=== PATIENT | female | born 2000 | race Caucasian/White ===

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

== ENCOUNTER 2020-08-04 05:24 | Inpatient (IN) | payer MEDICAID ==
[~2020-08-04] VITALS: Ht 157.5 cm; Wt 62.6 kg
[2020-08-04] MEDS ORDERED: ONDANSETRON HCL/PF 4 MG/2 ML VIAL ONE (05:36)
--- NOTE | 2020-08-04 05:53 | NUR ---
PATIENT CAME TO THE ER BED 4 C/O MID EPIGASTRIC PAIN SINCE LAST NIGHT. PATIENT STATES THAT SHE ALSO TOOK TYLENOL FOR THE PAIN WITH NO RELIEF. PATIENT IS AAOX4. NO SOB.BREATHING EVENLY AND UNLABORED ON ROOM AIR. CONNECTED TO THE MONITOR.
[2020-08-04] MEDS ORDERED: MORPHINE SULFATE INJ 2 MG/ML DISP.SYRIN IV ONE (06:00)
[2020-08-04] MEDS ORDERED: IV NS 0.9% 1,000 ML BAG IV ONE ×2 (06:00→08:30)
[2020-08-04] MEDS ORDERED: ONDANSETRON HCL/PF 4 MG/2 ML VIAL IVP ONE (06:00)
[2020-08-04 06:11] LABS: BILIRUBIN,URINE NEGATIVE (NEGATIVE); COLOR,URINE YELLOW (YELLOW); LEUKOCYTE ESTERASE ,URINE NEGATIVE (NEGATIVE); NITRITE, URINE NEGATIVE (NEGATIVE); PROTEIN,URINE NEGATIVE (NEGATIVE); UGLUCOSE NEGATIVE (NEGATIVE); UROBILINOGEN,URINE 0.2 EU/dL (0.2)
[2020-08-04 06:28] LABS: BASOPHILS % (AUTO) 0.6 % (0.0-2.0); EOSINOPHILS % (AUTO) 9.5 % (0.0-6.0); HEMATOCRIT 33 % (33-45); HEMOGLOBIN 10.5 g/dL (11.5-14.8); LYMPHOCYTES # (AUTO) 2.2 /CMM (0.8-4.8); LYMPHOCYTES % (AUTO) 31.9 % (20.0-44.0); MEAN CORPUSCULAR HGB CONC 32 g/dl (31.0-36.0); MEAN CORPUSCULAR VOLUME 73 fL (82-100); MONOCYTES # (AUTO) 0.4 /CMM (0.1-1.30); MONOCYTES % (AUTO) 5.4 % (2.0-12.0); NEUTROPHILS # (AUTO) 3.7 /CMM (1.8-8.9); NEUTROPHILS % (AUTO) 52.6 % (43.0-81.0); PLATELET COUNT (AUTO) 228 /CMM (150-450); RED BLOOD CELL COUNT(AUTO) 4.58 MIL/uL (4.0-5.2)
[2020-08-04 06:32] LABS: CALCIUM, SERUM 8.7 mg/dL (8.5-10.1); CREATININE 0.7 mg/dL (0.6-1.3); POTASSIUM 3.6 mmol/L (3.5-5.1)
[2020-08-04 06:36] LABS: ALBUMIN 3.9 g/dL (3.4-5.0); BILIRUBIN,DIRECT 0.2 mg/dL (0.0-0.2); BILIRUBIN,TOTAL 0.4 mg/dL (0.2-1.0); TOTAL PROTEIN, SERUM 7.8 g/dL (6.4-8.2)
[2020-08-04 06:50] LABS: SQUAMOUS EPITHELIAL CELL,UR Few /HPF (None Seen)
[2020-08-04 06:51] LABS: BACTERIA,URINE Few /HPF (None Seen)
[2020-08-04] MEDS ORDERED: KETOROLAC TROMETHAMINE INJ 30 MG/ML VIAL IV ONE ×2 (07:00→08:00)
[2020-08-04] MEDS ORDERED: KETOROLAC TROMETHAMINE 15 MG/ML VIAL ONE ×2 (07:05→07:32)
--- NOTE | 2020-08-04 07:15 | NUR ---
CALLED [employer] PERSON DR. BROWN (SURGERY) [phone]. VM LEFT WAITING FOR CALL BACK
--- NOTE | 2020-08-04 07:22 | NUR ---
ADMISSION PACKET GIVEN TO ADMITTING.
[2020-08-04 07:34] LABS: EOSINOPHILS % (MANUAL) 8 % (0-4); LYMPHOCYTES % (MANUAL) 32 % (16-48); MONOCYTES % (MANUAL) 4 % (0-11.0); NEUTROPHILS % (MANUAL) 56 (42-76)
--- NOTE | 2020-08-04 07:40 | NUR ---
ASSESSED PT ON BED AWAKE AND ALERT, NOT IN RESPIRATORY DISTRESS, V/S STABLE, KEPT RESTED AND COMFORTABLE. WILL CONTINUE TO MONITOR.
--- NOTE | 2020-08-04 08:00 | NUR ---
CALLED JUNITO BROWN FOR SURGICAL CONSULT. NO ANSWER, LEFT MESSAGE. WILL CALL AGAIN IN 30 MINUTES.
[2020-08-04] MEDS ORDERED: FENTANYL PF 100MCG/2ML AMPUL ONE (08:24)
--- NOTE | 2020-08-04 08:26 | NUR ---
CALLED DR. JUNITO BROWN, ANSWERED AND CURRENTLY SPEAKING WITH ER ATTENDING.
--- NOTE | 2020-08-04 08:29 | NUR ---
PAGED DR. BORDEN FOR GI CONSULT, NO ANSWER, LEFT MESSAGE.
[2020-08-04] MEDS ORDERED: FENTANYL PF 100MCG/2ML AMPUL IV ONE (08:30)
[2020-08-04] MEDS ORDERED: CEFTRIAXONE 1 G in IV D5W 50 ML IV ONE (08:30)
[2020-08-04] MEDS ORDERED: METRONIDAZOLE 500MG/ NS 100ML 100 ML IV ONE (08:30)
[2020-08-04] MEDS ORDERED: CEFTRIAXONE 1GM BAG (ER ONLY) 50 ML IV ONE (08:33)
--- NOTE | 2020-08-04 09:27 | NUR ---
ROOM GIVEN [id number]
--- NOTE | 2020-08-04 10:05 | NUR ---
REPORT GIVEN TO [address] FOR DAMIEN.
[2020-08-04 10:08] VITALS: BP 120/60
--- NOTE | 2020-08-04 10:10 | NUR ---
TELE/RN NOTES RECEIVED REPORT FROM MITZI BOOGIE. PATIENT IN ROOM AIR. NO APPARENT RESPIRATORY DISTRESS NOTED. NO COMPLAINED OF PAIN AT THIS TIME. INITIAL ASSESSMENT WAS DONE. BP122/68 P 49 TEMP 97.6 SAO2 100%. WILL CONTINUE TO MONITOR.
--- NOTE | 2020-08-04 13:29 | NUR ---
RN NOTES PATIENT SIGN FOR AGAINST MEDICAL ADVICE, EXPLAINED THE RISK AND BENEFITS PATIENT VERBALIZED SHE CANNOT STAY LONGER BECAUSE SHE NEED TO BREASTFEED HER BABY.
== END 2020-08-04 13:15 | disposition left against medical advice (07) ==
LOC: ER 05:26 → TELE 09:52
PROVIDERS: ADMIT Nurse Practitioner Acute Care; ATTEND Nurse Practitioner Acute Care
DX: K80.42 Calculus of bile duct with acute cholecystitis without obstruction (principal); Z98.890 Other specified postprocedural states; I95.9 Hypotension, unspecified
CPT/HCPCS: 36415; 76705-TC; 80048-TC; 80076-TC; 81001; 83605-TC; 83690-TC; 84702-TC; 84703-TC; 85025-TC; 87040-TC; 87081-TC; C9803; G0378; J0696; J1885; J2405; J3010; J7030; J7060

== ENCOUNTER 2021-05-15 08:10 | Emergency (ER) | payer MEDICAID ==
[~2021-05-15] VITALS: Ht 152.4 cm; Wt 63.5 kg
[2021-05-15 08:24] VITALS: BP 114/50
--- NOTE | 2021-05-15 08:27 | NUR ---
PT CAME TO ER C/O L BIG TOE PAIN AND INGROWN NAIL X 2 WEEKS. AAOX4, AMBULATORY, BREATHING EVEN AND UNLABORED. AWAITING MD FOR EVAL
[2021-05-15] MEDS ORDERED: LIDOCAINE 0.5% HCL 50 ML VIAL ONE (08:40)
[2021-05-15] MEDS ORDERED: LIDOCAINE HCL/MPF 1% 30 ML VIAL IJ ONE (08:44)
[2021-05-15] MEDS ORDERED: LIDOCAINE HCL/PF 1% 30 ML VIAL TP ONE (09:00)
--- NOTE | 2021-05-15 09:57 | NUR ---
Patient discharged to home in stable condition. Written and verbal after care instructions given. Patient verbalizes understanding of instruction.
== END 2021-05-15 09:58 | disposition home or self-care (01) ==
LOC: ER 08:15
DX: L60.0 Ingrowing nail (principal); Z98.890 Other specified postprocedural states
CPT/HCPCS: 11730; 99284; J3490 ×2

== ENCOUNTER 2025-03-26 20:39 | Emergency (ER) | payer MEDICAID ==
[~2025-03-26] VITALS: Ht 152.4 cm; Wt 72.6 kg
[2025-03-26 21:05] VITALS: BP 104/56; TEMP 98.4; O2SAT 96
[2025-03-26] MEDS: ACETAMINOPHEN ES 500 MG TABLET PO ONE (22:57)
[2025-03-26] MEDS ORDERED: ACETAMINOPHEN ES 500 MG TABLET ONE (22:57)
[2025-03-26 23:20] LABS: APPEARANCE,URINE CLEAR (CLEAR); BLOOD, URINE NEGATIVE Ery/uL (NEGATIVE); LEUKOCYTE ESTERASE ,URINE NEGATIVE (NEGATIVE); NITRITE, URINE NEGATIVE (NEGATIVE); UGLUCOSE NEGATIVE (NEGATIVE)
== END 2025-03-26 23:41 | disposition left against medical advice (07) ==
LOC: ER 20:42
DX: M79.662 Pain in left lower leg (principal); M25.552 Pain in left hip
CPT/HCPCS: 93971-TC